=== PATIENT | female | born 2005 | race African-American/Black ===

== ENCOUNTER 2024-03-04 17:55 | Inpatient (IN) | payer MEDICAID ==
[~2024-03-04] VITALS: Ht 160 cm; Wt 97.5 kg
[2024-03-04 17:57] VITALS: O2SAT 100
[2024-03-04] MEDS: ASPIRIN 81MG TABLET PO ONE (18:26)
[2024-03-04] MEDS: LABETALOL 5MG/ML 4ML INJ IV ONE (18:26)
[2024-03-04 18:41] LABS: BASOPHILS % 0.5 % (0.0-2.0); EOSINOPHILS % 0.3 % (0.0-5.0); HEMATOCRIT. 41.5 % (36.0-48.0); HEMOGLOBIN. 13.5 g/dL (12.0-16.0); LYMPHOCYTES % 19.3 % (20.0-50.0); MEAN CORPUSCULAR HEMOGLOBIN 28.4 pg (28.0-32.0); MEAN CORPUSCULAR HGB CONC 32.6 g/dL (31.0-37.0); MEAN CORPUSCULAR VOLUME 87.2 fL (81.0-99.0); MEAN PLATELET VOLUME 7.2 fl (7.4-10.4); NEUTROPHILS % 71.9 % (40.0-76.0); PLATELET 332 x1000/uL (130-400); RED BLOOD CELL COUNT 4.76 mill/uL (4.2-5.4); RED CELL DISTRIBUTION WIDTH 13.3 % (11.6-14.6); WHITE BLOOD COUNT 8.2 x1000/uL (4.5-11.0)
[2024-03-04 18:46] LABS: CHLORIDE 103 mEq/L (98-107); POTASSIUM 2.9 mEq/L (3.5-5.1); SODIUM 137 mEq/L (136-145)
[2024-03-04 18:47] LABS: CALCIUM 10.2 mg/dL (8.7-10.4); CARBON DIOXIDE 24 mEq/L (21-32)
[2024-03-04 18:52] LABS: CREATININE 1.1 mg/dL (0.6-1.0); GLUCOSE 116 mg/dL (70-105); UREA NITROGEN BLOOD 10 mg/dL (9-23)
[2024-03-04 19:31] LABS: TROPONIN I HIGH SENSITIVITY 8 ng/L (3.0-34)
[2024-03-04] MEDS: POTASSIUM CHLORIDE 20MEQ TABLET SR PO NR (21:15)
[2024-03-04 21:41] LABS: TROPONIN I HIGH SENSITIVITY 8 ng/L (3.0-34)
[2024-03-04] MEDS: HYDRALAZINE 20MG/ML VIAL IV PRN (23:37)
[2024-03-04] MEDS: HYDROCODONE/ACETAMINOPHEN 10/325MG TABLET PO PRN (23:37)
[2024-03-05] MEDS ORDERED: LABETALOL 5MG/ML 4ML INJ IV PRN (09:15)
[2024-03-05] MEDS ORDERED: ACETAMINOPHEN 325MG TABLET PO PRN (09:15)
[2024-03-05] MEDS: KETOROLAC 30MG/ML VIAL IV PRN (09:35)
[2024-03-05] MEDS: ONDANSETRON HCL 4MG/2ML INJ IV PRN (09:36)
[2024-03-05 11:42] VITALS: O2SAT 100
[2024-03-05 12:50] VITALS: BP 162/92; PULSE 100; RESP 18; TEMP 36.5292
[2024-03-05] MEDS ORDERED: METOCLOPRAMIDE HCL 10MG/2ML VIAL IV SCH (18:00)
[2024-03-06] MEDS ORDERED: FAMOTIDINE 20MG/2ML VIAL IV SCH (09:00)
== END 2024-03-05 14:34 | disposition left against medical advice (07) | DRG 199 ==
LOC: ER 17:55 → MICUSO 22:06 → EDBEDREQTM 22:29 → EDBEDREQ 22:29 → 5WST 03-05 07:13 → 7EST 03-05 12:34
PROVIDERS: ADMIT Internal Medicine; ATTEND Internal Medicine
DX: I16.0 Hypertensive urgency (principal); E66.9 Obesity, unspecified; E87.6 Hypokalemia; Z53.29 Procedure and treatment not carried out because of patient's decision for other reasons; I10 Essential (primary) hypertension; Z68.38 Body mass index [BMI] 38.0-38.9, adult
CPT/HCPCS: 36415; 71045; 74018; 80048; 83880; 84484; 85025; 93005; 99291; J0360; J1885; J2405; J3490